=== PATIENT | male | born 1960 | race Caucasian/White ===

== ENCOUNTER 2017-02-23 23:37 | Inpatient (IN) ==
[2017-02-23] MEDS ORDERED: Aspirin 81 MG TAB.CHEW PO ONE (23:43)
--- NOTE | 2017-02-23 23:57 | Emergency Department Note ---
Disposition Clinical Impression: Non-STEMI (non-ST elevated myocardial infarction) Disposition: Admitted As Inpatient Condition: Fair Time of Disposition: 01:57 Chest Pain HPI - General Chief Complaint: ED Chest Pain Stated Complaint: chest pain Time Seen by Provider: 02/23/17 23:43 Source: patient, EMS Limitations: no limitations Vital Signs Reviewed: Yes Nursing Notes Reviewed: Yes - History of Present Illness HPI Narrative: 57-year-old nontoxic-appearing male presents to the emergency department for evaluation of intermittent chest pain that has occurred for the past 3 days. The patient states that when symptoms arise, his pain is located to the substernal area. He states that originally, the pain was only present with exertion. He became concerned tonight, when the pain began during rest. He states the only alleviating factor is prolonged durations of rest. He denies any associated signs or symptoms such as shortness of breath, diaphoresis, nausea, or vomiting. He denies any sputum production, although states that he "always has a little bit of a cough because I smoke". He denies any previous cardiac history. He denies any known medical history. He denies taking any regular prescribed medications at home. Pt complaint: chest pain Onset (ago): day(s) (2 days ago) Duration: intermittent Onset: during rest, during exertion Pain Location: substernal Severity scale (1-10): 0 Quality: sharp Pain Radiation: none Treatments prior to arrival chest pain: none - Related Data Allergies Allergy/AdvReac Type Severity Reaction Status Date / Time No Known Allergies Allergy Verified 02/23/17 23:51 All systems ED: reviewed and negative except as stated. Constitutional: Denies: fever, chills, weakness, weight change Eyes: Denies: eye pain, eye discharge, vision change ENT ED: Denies: ear pain, throat pain, dental pain, hearing loss, epistaxis, congestion, dysphagia Cardiovascular: Reports: as per HPI, chest pain. Denies: palpitations, dyspnea on exertion, edema, syncope Respiratory: Denies: cough, dyspnea, wheezes, hemoptysis, stridor Gastrointestinal: Denies: abdominal pain, nausea, vomiting, diarrhea, constipation, hematemesis, melena, hematochezia Genitourinary: Denies: urgency, dysuria, frequency, hematuria Musculoskeletal: Denies: back pain, neck pain, arthralgia, myalgia Integumentary: Denies: rash, abrasion, lesions Neurological: Denies: headache, weakness, numbness, paresthesias, confusion, abnormal gait, vertigo Psychiatric: Denies: anxiety, depression, suicidal thoughts, homicidal thoughts , auditory hallucinations, visual hallucinations Endocrine: Denies: fatigue Hematological/Lymphatic: Denies: easy bleeding, easy bruising Allergic/Immunologic: Denies: facial swelling, urticaria Chest Pain PMH - Past Medical History Medical history: Reports: no medical history Psychiatric history: Reports: no psych history - Social History Smoking Status: Current every day smoker Alcohol use: Reports: none Drug use: Reports: none Physical Exam - General Limitations: no limitations General appearance: alert, in no apparent distress - Head Head exam: atraumatic, normocephalic, normal inspection - Eye Eye exam: Present: normal appearance, PERRL, EOMI. Absent: nystagmus - ENT ENT exam: mucous membranes moist - Neck Neck exam: Present: normal inspection, full ROM, trachea midline - Chest Chest inspection: Present: normal inspection, symmetric chest wall rise - Respiratory Respiratory exam: Present: normal lung sounds bilaterally. Absent: respiratory distress, wheezes, stridor, accessory muscle use, prolonged expiratory phase - Cardiovascular Cardiovascular exam: Present: regular rate, normal rhythm, normal heart sounds - Abdominal Exam Abdominal exam: Present: soft, Non-Tender, normal bowel sounds. Absent: tenderness, distention, guarding, rebound, rigidity - Extremities Exam Extremities exam: Present: normal inspection, full ROM. Absent: tenderness, pedal edema - Neurological Exam Neurological exam: Present: alert, oriented X3 - Psychiatric Psychiatric exam: Present: normal affect, normal mood - Skin Skin exam: Present: warm, dry, intact, normal color Course Course Narrative: 0150: I have discussed this patient's case with Dr. Gamboa. Dr. Gamboa has had a [id number] evaluation with this patient and agrees with the plan. He recommends admission to the hospitalist service for further evaluation of a non- STEMI. At this time, I am awaiting a return call from the hospitalist. 0210: I spoke with Dr. Blackmon, who has accepted the patient for admission to the hospitalist service. Vital Signs Temperature 98.2 F 02/23/17 23:40 Pulse Rate 73 02/23/17 23:40 Respiratory Rate 23 02/23/17 23:40 Blood Pressure 157/88 02/23/17 23:40 O2 Sat by Pulse Oximetry 98 02/23/17 23:40 Temperature 97.6 F 02/24/17 03:31 Pulse Rate 73 02/24/17 03:31 Respiratory Rate 16 02/24/17 03:31 Blood Pressure 115/74 02/24/17 03:31 O2 Sat by Pulse Oximetry 97 02/24/17 03:31 Oxygen Delivery Oxygen Delivery Room Air Chest Pain - Medical Records Medical records reviewed: Yes I reviewed the patient's medical records. - Lab Data Lab results reviewed: Yes I reviewed the patient's lab results. Lab results narrative: Laboratory Last Values WBC 8.4 K/mcL (4.3-11.1) 02/24/17 00:01 RBC 4.47 M/mcL (4.19-5.50) 02/24/17 00:01 Hgb 14.1 g/dL (12.9-16.9) 02/24/17 00:01 Hct 42.3 % (37.5-50.1) 02/24/17 00:01 MCV 94.6 fL (83.0-100.0) 02/24/17 00:01 MCH 31.5 pg (28.0-33.3) 02/24/17 00:01 MCHC 33.3 g/dL (31.6-35.5) 02/24/17 00:01 RDW 14.2 % (11.5-14.5) 02/24/17 00:01 Plt Count 180 K/mcL (140-400) 02/24/17 00:01 MPV 13.7 fL (9.4-12.4) H 02/24/17 00:01 Immature Gran % 0.4 % (0-4) 02/24/17 00:01 Seg Neutrophils % 62.5 % 02/24/17 00:01 Lymphocytes % 24.1 % 02/24/17 00:01 Monocytes % 8.1 % 02/24/17 00:01 Eosinophils % 4.1 % 02/24/17 00:01 Basophils % 0.8 % 02/24/17 00:01 Neutrophils # 5.3 K/mcL (1.6-8.9) 02/24/17 00:01 Lymphocytes # 2.0 K/mcL (0.6-4.6) 02/24/17 00:01 Monocytes # 0.7 K/mcL (0.0-1.3) 02/24/17 00:01 Eosinophils # 0.3 K/mcL (0.0-0.6) 02/24/17 00:01 Basophils # 0.1 K/mcL (0.0-0.2) 02/24/17 00:01 Nucleated RBCs/100 WBC 0.2 /100 WBC (0) H 02/24/17 00:01 Platelet Estimate Normal (Normal) 02/24/17 00: Large Platelets Present (Not Present) A 02/24/17 00: Immature Plt Fraction 24.3 % (1.1-6.1) H 02/24/17 00: PT 11.8 Seconds (9.4-12.1) 02/24/17 00: INR 1.1 02/24/17 00: APTT 30.1 Seconds (26.0-36.0) 02/24/17 00: Sodium 142 mEq/L (136-145) 02/24/17 00: Potassium 3.1 mEq/L (3.5-4.5) L 02/24/17 00: Chloride 107 mEq/L (98-109) 02/24/17 00: Carbon Dioxide 25 mEq/L (19-29) 02/24/17 00: BUN 20 mg/dL (8-26) 02/24/17 00:01 Creatinine 1.04 mg/dL (0.72-1.25) 02/24/17 00: Est GFR ( Amer) > 60 (> 60) 02/24/17 00: Est GFR (Non-Af Amer) > 60 (> 60) 02/24/17 00:01 BUN/Creatinine Ratio 19 (6-26) 02/24/17 00: Glucose 139 mg/dL (70-99) H 02/24/17 00: Calculated Osmolality 299 (280-300) 02/24/17 00: Calcium 8.5 mg/dL (8.6-10.8) L 02/24/17 00: Troponin I 0.23 ng/mL (0-0.03) H* 02/24/17 00:01 B-Natriuretic Peptide 43 pg/mL (0-100) 02/24/17 00:01 Result diagrams: 02/24/17 00:01 02/24/17 00:01 Lab Results 02/24/17 02/24/17 02/24/17 Range/Units 00:01 00:01 00:01 WBC 8.4 (4.3-11.1) K/mcL RBC 4.47 (4.19-5.50) M/mcL Hgb 14.1 (12.9-16.9) g/dL Hct 42.3 (37.5-50.1) % MCV 94.6 (83.0-100.0) fL MCH 31.5 (28.0-33.3) pg MCHC 33.3 (31.6-35.5) g/dL RDW 14.2 (11.5-14.5) % Plt Count 180 (140-400) K/mcL MPV 13.7 H (9.4-12.4) fL Immature Gran % 0.4 (0-4) % Seg Neutrophils % 62.5 % Lymphocytes % 24.1 % Monocytes % 8.1 % Eosinophils % 4.1 % Basophils % 0.8 % Neutrophils # 5.3 (1.6-8.9) K/mcL Lymphocytes # 2.0 (0.6-4.6) K/mcL Monocytes # 0.7 (0.0-1.3) K/mcL Eosinophils # 0.3 (0.0-0.6) K/mcL Basophils # 0.1 (0.0-0.2) K/mcL Nucleated RBCs/100 WBC 0.2 H (0) /100 WBC Platelet Estimate Normal (Normal) Large Platelets Present A (Not Present) Immature Plt Fraction 24.3 H (1.1-6.1) % PT 11.8 (9.4-12.1) Seconds INR 1.1 APTT 30.1 (26.0-36.0) Seconds Sodium (136-145) mEq/L Potassium (3.5-4.5) mEq/L Chloride (98-109) mEq/L Carbon Dioxide (19-29) mEq/L BUN (8-26) mg/dL Creatinine (0.72-1.25) mg/dL Est GFR ( Amer) (> 60) Est GFR (Non-Af Amer) (> 60) BUN/Creatinine Ratio (6-26) Glucose (70-99) mg/dL Calculated Osmolality (280-300) Calcium (8.6-10.8) mg/dL Troponin I (0-0.03) ng/mL B-Natriuretic Peptide 43 (0-100) pg/mL 02/24/17 02/24/17 Range/Units 00:01 00:01 WBC (4.3-11.1) K/mcL RBC (4.19-5.50) M/mcL Hgb (12.9-16.9) g/dL Hct (37.5-50.1) % MCV (83.0-100.0) fL MCH (28.0-33.3) pg MCHC (31.6-35.5) g/dL RDW (11.5-14.5) % Plt Count (140-400) K/mcL MPV (9.4-12.4) fL Immature Gran % (0-4) % Seg Neutrophils % % Lymphocytes % % Monocytes % % Eosinophils % % Basophils % % Neutrophils # (1.6-8.9) K/mcL Lymphocytes # (0.6-4.6) K/mcL Monocytes # (0.0-1.3) K/mcL Eosinophils # (0.0-0.6) K/mcL Basophils # (0.0-0.2) K/mcL Nucleated RBCs/100 WBC (0) /100 WBC Platelet Estimate (Normal) Large Platelets (Not Present) Immature Plt Fraction (1.1-6.1) % PT (9.4-12.1) Seconds INR APTT (26.0-36.0) Seconds Sodium 142 (136-145) mEq/L Potassium 3.1 L (3.5-4.5) mEq/L Chloride 107 (98-109) mEq/L Carbon Dioxide 25 (19-29) mEq/L BUN 20 (8-26) mg/dL Creatinine 1.04 (0.72-1.25) mg/dL Est GFR ( Amer) > 60 (> 60) Est GFR (Non-Af Amer) > 60 (> 60) BUN/Creatinine Ratio 19 (6-26) Glucose 139 H (70-99) mg/dL Calculated Osmolality 299 (280-300) Calcium 8.5 L (8.6-10.8) mg/dL Troponin I 0.23 H* (0-0.03) ng/mL B-Natriuretic Peptide (0-100) pg/mL - Radiology Data Radiology results reviewed: Yes I reviewed the patient's radiology results. Chest X-Ray 02/24/17 23:43 IMPRESSION: No acute cardiopulmonary process. D/ / Brenna Strong MD / Brenna Strong MD Interpreting Provider: Brenna Strong MD - EKG Data EKG attestation: Yes I reviewed and interpreted this EKG. EKG results narrative: EKG reviewed by Dr. Gamboa as well. EKG shows sinus rhythm with moderate ST depression in leads V4, V5, and V6. No ectopy noted. No STEMI. Attestation Statement - Attestation Attestation: I, Charli Gamboa, examined this patient and my medical decision-making was reviewed with the [employer]/PA/Advanced Practice Nurse/Resident Physician. I agree with the documented findings, disposition and treatment plan as described except to the extent set forth below. 57-year-old male presents with concerns of weakness, fatigue, chest pain intermittent over the past 3 days. Patient denies history of cardiac disease. He denies taking any daily medications. Patient has an elevated troponin with an EKG that shows lateral ST depressions. He should not was started on heparin in the emergency department for concerns of an STEMI. He no longer has pain in the emergency department. He will be admitted to the hospital for further care and evaluation.
[2017-02-24 00:11] LABS: Basophils % 0.8 %; Immature Granulocytes % 0.4 % (0-4); Mean Platelet Volume 13.7 fL (9.4-12.4)
[2017-02-24 00:12] LABS: Basophils # 0.1 K/mcL (0.0-0.2); Eosinophils # 0.3 K/mcL (0.0-0.6); Eosinophils % 4.1 %; Hematocrit 42.3 % (37.5-50.1); Hemoglobin 14.1 g/dL (12.9-16.9); Immature Platelets 24.3 % (1.1-6.1); Lymphocytes % 24.1 %; Mean Corpuscular HGB Conc 33.3 g/dL (31.6-35.5); Mean Corpuscular Hemoglobin 31.5 pg (28.0-33.3); Mean Corpuscular Volume 94.6 fL (83.0-100.0); Monocytes # 0.7 K/mcL (0.0-1.3); Monocytes % 8.1 %; Neutrophils # 5.3 K/mcL (1.6-8.9); Nucleated Red Blood Cells 0.2 /100 WBC (0); Platelet Count 180 K/mcL (140-400); Red Blood Count 4.47 M/mcL (4.19-5.50); Red Cell Distribution Width 14.2 % (11.5-14.5); Segmented Neutrophils % 62.5 %
[2017-02-24 00:19] LABS: BUN/Creatinine Ratio 19 (6-26); Blood Urea Nitrogen 20 mg/dL (8-26); Calcium 8.5 mg/dL (8.6-10.8); Carbon Dioxide 25 mEq/L (19-29); Chloride 107 mEq/L (98-109); Glucose 139 mg/dL (70-99); INR 1.1; Osmolality,Calculated 299 (280-300); Potassium 3.1 mEq/L (3.5-4.5); Prothrombin Time 11.8 Seconds (9.4-12.1); Sodium 142 mEq/L (136-145); eGFR For African Americans > 60 (> 60); eGFR For Non-African Americans > 60 (> 60)
[2017-02-24 00:22] LABS: Activated Partial Thrombo Time 30.1 Seconds (26.0-36.0)
[2017-02-24 00:30] LABS: Large Platelets Present (Not Present); Platelet Estimate Normal (Normal)
[2017-02-24] MEDS ORDERED: *HR* Heparin 5,000 UNIT/ML VIAL IVP PRN ×2 (02:08)
[2017-02-24] MEDS ORDERED: *HR* Heparin 5,000 UNIT/ML VIAL IVP ONE (02:08)
[2017-02-24] MEDS: Heparin 25,000 UNIT/500 ML D5W 25,000 UNIT/500 ML MLS IVC SCH ×2 (02:26→22:00)
[2017-02-24] MEDS ORDERED: Naloxone 0.4 MG/ML INJ IVP PRN (04:03)
[2017-02-24] MEDS ORDERED: *HR* Morphine 2 MG/ML SYRINGE IVP PRN (04:03)
--- NOTE | 2017-02-24 04:03 | Internal Med History&Physical ---
Date of Encounter: 02/24/17 Time of Encounter: 04:03 Assessment and Plan (1) Non-STEMI (non-ST elevated myocardial infarction) Current visit: Yes Status: Acute Risk factor: smoking - counseled for smoking cessation. Check lipid panel Treat with aspirin, intravenous heparin infusion. Cardiology consultation for possible cardiac catheterization. NPO for possible procedure. (2) Nicotine dependence Current visit: Yes Status: Acute Counseled for smoking cessation - pt is willing to stop smoking. Patient does not want nicotine patches at this time. Qualifiers: Nicotine product type: cigarettes Substance use status: other nicotine- induced disorder Qualified Code(s): F17.218 - Nicotine dependence, cigarettes , with other nicotine-induced disorders (3) Hyperglycemia Current visit: Yes Status: Acute No personal h/o DM. Will check HbA1C (4) Sleep apnea Current visit: Yes Status: Suspected Recommend sleep study as an outpatient - need to be organized by PCP Qualifiers: Sleep apnea type: unspecified type Qualified Code(s): G47.30 - Sleep apnea , unspecified (5) DVT prophylaxis Current visit: Yes Status: Acute patient is on heparin infusion Internal Medicine - H&P: HPI Chief complaint: Chest pain Admitted From: Emergency Dept Plans for Post Hospital Care: Home History of present illness: Mr. Oneil is a 57 year old male with no significant past medical history, every day smoker ( > 40 pack years history) presents with intermittent chest pain for 3 days. On 02/21/17, he noticed severe non-radiation midsternal chest pain (felt like someone was hitting with all they have), while he was walking. He rested and the pain went away in about 30 minutes. He denies palpitations, sweating, nausea, vomiting, shortness of breath at that time. The same night, he had chest pain after waking up from sleep. Tonight he had similar chest pain , after he had a nap. He was concerned and presented to the emergency department. He denies shortness of breath, cough, nausea, vomiting, abdominal pain, dysuria, hematuria or bowel problems. He was evaluated in the emergency department and his troponin was elevated at 0.23. He was given aspirin 325 mg and started on heparin infusion. He is admitted to the hospitalist service for further management. Past Med Surg Social Fam HX - Past Medical History Medical history: no medical history Psychiatric history: no psych history - Social History Smoking Status: Current every day smoker Smokeless Tobacco Status: No Alcohol use: none Drug use: none - Additional Family History Additional family history: His father had stomach cancer; Mother had COPD and dementia Internal Medicine - H&P: Meds Allergies No Known Allergies Allergy (Verified 02/23/17 23:51) All Systems PM: A 10-system review of systems was performed and is negative for pertinent findings except as documented above in the HPI. Pt reports snoring; sometimes feel tired after waking up in the morning and has h/o daytime sleepiness while sitting idle. - Constitutional Vitals: Temp Pulse Resp BP Pulse Ox 97.6 F 73 16 115/74 97 02/24/17 03:31 02/24/17 03:31 02/24/17 03:31 02/24/17 03:31 02/24/17 03:31 Exam: General: Not in acute distress at the time of my evaluation HEENT: Oral mucosa is moist. No conjunctival palor or scleral icterus Neck: No obvious neck swellings Lungs: Clear to auscultation Cardiac: Regular rate and rhythm. No significant murmurs Abdomen: Soft, non tender. Bowel sounds present Genitourinary: No dos snatos catheter Neurological: Alert and oriented. No gross localizing deficits Psych: Not aggressive or agitated Extremities: no significant leg edema Skin: scratch villarreal on the legs present Internal Med - H&P Results - Labs CBC & Chem 7: 02/24/17 00:01 02/24/17 00:01 - EKG Data -: EKG Interpreted by Myself EKG shows normal: sinus rhythm - EKG Data EKG comments: [address] depression in leads V3-V6: partial RBBB 02/24/17 04:27 - Impressions ITS Impressions Chest X-Ray 02/24/17 23:43 IMPRESSION: No acute cardiopulmonary process. D/ / Brenna Strong MD / Brenna Strong MD Interpreting Provider: Brenna Strong MD
[2017-02-24] MEDS ORDERED: Nitroglycerin 0.4 MG TAB.SUBL SL PRN (04:07)
[2017-02-24 06:06] LABS: Chol/HDL Ratio 5.6 (0-4.9)
[2017-02-24 06:14] LABS: Hemoglobin A1C 5.3 %
--- NOTE | 2017-02-24 07:05 | Cardiology Consult Note ---
Date of Encounter: 02/24/17 Time of Encounter: 07:02 Assessment and Plan (1) Non-STEMI (non-ST elevated myocardial infarction) Current Visit: Yes Status: Acute Patient presents with typical chest pain symptoms. No known history. Presents with elevated blood pressure 158/66. Cholesterol panel shows LDL elevated at 143. He is a current smoker. Left heart catheterization is recommended for further evaluation. Indications, benefits, risks, and alternatives discussed with patient and he agrees to proceed. Nothing by mouth after midnight for LHC and a.m. Check TTE. Continue to trend troponin. Cardiac rehab referral. Continue heparin drip. Continue aspirin. Add statin and beta susan. (2) Nicotine dependence Current Visit: Yes Status: Acute Counseled for smoking cessation. Declines need for NRT. Qualifiers: Nicotine product type: cigarettes Substance use status: other nicotine- induced disorder Qualified Code(s): F17.218 - Nicotine dependence, cigarettes , with other nicotine-induced disorders (3) Hyperlipidemia Current Visit: Yes Status: Acute Start statin. Qualifiers: Hyperlipidemia type: pure hypercholesterolemia Qualified Code(s): E78.00 - Pure hypercholesterolemia, unspecified; E78.0 - Pure hypercholesterolemia Discussion w patient/family: The assessment and plan as outlined above was discussed with the patient and/or family members who expressed understanding and agreement. All questions were answered. Thank you for involving us in the care of your patient. Please call with any questions. History of Present Illness Consult date: 02/24/17 Requesting physician: Carolyn Blackmon Consult reason: NSTEMI Chief complaint: Chest pain History of present illness: Mr. Oneil is a 57 year old male with no previous medical history who presents with intermittent chest pain over the last 3 days. His chest pain is midsternal that occurs mostly with activity. His symptoms are relieved with rest. He became concerned when he developed chest pain at rest yesterday. He denies shortness of breath. He has no previous history of CAD or cardiac workup. In the emergency department was found to have elevated troponin 0.23. EKG shows sinus rhythm with borderline ST depression in leads V4 through V6, I, II, and aVF.He is admitted for non-STEMI. Past Med Surg Social Fam HX - Past Medical History Medical history: no medical history Psychiatric history: no psych history - Social History Smoking Status: Current every day smoker Packs per day: 1 Smokeless Tobacco Status: No Alcohol use: none Drug use: none - Family History Mother Living Status: Hx Family Cardiac Disorders: No Hx Family Respiratory Disorders: Yes (copd) Hx Family Cancer: No Hx Family GI Disorders: No Hx Family Genitourinary Disorders: No Hx Family Endocrine Disorder: No Hx Family Musculoskeletal Disorders: No Hx Family Neuromuscular Disorders: No Hx Family Neurologic Disorders: Yes (dementia) Hx Family HEENT Disorders: No Hx Family Autoimmune Disorders: No Hx Family Reproductive Disorders: No Hx Family Psychosocial Disorders: No Hx Family Medical Disorders: No Father Living Status: Hx Family Cardiac Disorders: No Hx Family Respiratory Disorders: No Hx Family Cancer: Yes (stomach cancer) Hx Family GI Disorders: No Hx Family Genitourinary Disorders: No Hx Family Endocrine Disorder: No Hx Family Musculoskeletal Disorders: No Hx Family Neuromuscular Disorders: No Hx Family Neurologic Disorders: No Hx Family HEENT Disorders: No Hx Family Autoimmune Disorders: No Hx Family Reproductive Disorders: No Hx Family Psychosocial Disorders: No Hx Family Medical Disorders: No Medications and Allergies Allergies No Known Allergies Allergy (Verified 02/23/17 23:51) All Systems Review: A 10-system review of systems was performed and is negative for pertinent findings except as documented above in the HPI. Physical Examination Vital Signs Temp Pulse Resp BP Pulse Ox 02/24/17 03:31 97.6 F 73 16 115/74 97 02/24/17 03:04 98.3 F 18 134/76 02/24/17 01:45 64 16 137/77 97 02/24/17 01:11 61 18 160/88 98 02/23/17 23:40 98.2 F 73 23 157/88 98 Intake and Output 02/23/17 02/23/17 02/24/17 15:59 23:59 07:59 Intake Total 25 / 25 Balance 25 / 25 Intake: IV Fluids 25 / 25 Heparin 25,000 UNIT/500 25 / 25 ML D5W 25,000 unit In 500 ml @ 12 UNIT/KG/HR 26. 088 mls/hr IVC .[id number] Rx#:[id number] Other: Weight 113.398 kg 108.6 kg Patient Weight 02/24/17 23:59 Weight 108.6 kg General: Conversant, No Apparent Distress HEENT: Atraumatic, Normocephaly, Mucus Membranes Moist Neck: No JVD, Normal carotid pulses Cardiac: Reg Rate and Rhythm, Normal S1 and S2, No Murmur Lungs: Normal Breath Sounds, No Wheeze, Rales, Rhonchi Neuro: Alert and responsive, No focal deficits noted Abdomen: Soft, Non-Tender Skin: No rashes noted on visualized skin Musculoskeletal: No Chest Wall Tenderness Extremities: No Clubbing, No Cyanosis, No Edema, Normal Pulses Results 02/24/17 00:01 02/24/17 00:01 Lab Results 02/24/17 04:40 Magnesium 1.8 - Imaging and Cardiology Chest Xray: report reviewed (No acute findings.) - EKG Interpretation EKG results cardiology: personally reviewed Consult Discharge Plan - Plan Referrals: NO,PCP [Primary Care Provider] -
[2017-02-24] MEDS ORDERED: Aspirin 325 MG TABLET PO SCH (09:00)
--- NOTE | 2017-02-24 12:03 | Internal Med Progress Note ---
<Mo Carrion - Last Filed: 02/24/17 12:06> Date of Encounter: 02/24/17 Time of Encounter: 11:57 - Assessment and plan (1) Non-STEMI (non-ST elevated myocardial infarction) Current Visit: Yes Status: Acute Assessment and plan: 57-year-old male with history of tobacco abuse 40 pack year history presented with chief complaint of intermittent chest pain described as a punch, heaviness substernally not associated with nausea, vomiting, diaphoresis, shortness of breath. Patient had first episode while walking and the pain went away and 30 minutes after resting. Patient had similar pain occurred 2 more times. In the ER his troponin was elevated at 2.23. EKG showed a rate of 67, normal sinus rhythm with ST depressions in the lateral leads. risk factors include smoking, hyperlipidemia, obesity. Denies family history of cardiac disease however he states he is not very close with his family. Troponin 0.23, 0.22, 0.46. On an upward trend. Currently patient denies chest pain, shortness of breath. Cardiology consult of the hand he will undergo left heart catheterization tomorrow Echocardiogram pending. Continue aspirin and heparin, statin, metoprolol. (2) Nicotine dependence Current Visit: Yes Status: Acute Assessment and plan: Patient has a 21-jovl-xyxd history. Currently he understands the benefits of smoking cessation. And patient is willing to stop. He does not want nicotine patches at this time. Qualifiers: Nicotine product type: cigarettes Substance use status: other nicotine- induced disorder Qualified Code(s): F17.218 - Nicotine dependence, cigarettes , with other nicotine-induced disorders (3) Hyperglycemia Current Visit: Yes Status: Acute Assessment and plan: Patient's glucose is 139. He does not have any history of diabetes. His HgA1c is 5.3. (4) DVT prophylaxis Current Visit: Yes Status: Acute Assessment and plan: Heparin drip. (5) Sleep apnea Current Visit: Yes Status: Suspected Assessment and plan: Risk factors for sleep apnea include sex, obesity, smoking. We will set up outpatient sleep study. Qualifiers: Sleep apnea type: unspecified type Qualified Code(s): G47.30 - Sleep apnea , unspecified (6) Hyperlipidemia Current Visit: Yes Status: Acute Assessment and plan: Patient's LDL cholesterol is 143 and HDL is 34. Continue statin. Qualifiers: Hyperlipidemia type: pure hypercholesterolemia Qualified Code(s): E78.00 - Pure hypercholesterolemia, unspecified; E78.0 - Pure hypercholesterolemia - Subjective Interval history: Patient currently denies chest pain, shortness of breath, nausea, sweating, vomiting. - Constitutional Vitals: Temp Pulse Resp BP Pulse Ox 97.8 F 61 18 105/75 96 02/24/17 11:00 02/24/17 11:00 02/24/17 11:00 02/24/17 11:00 02/24/17 11:00 - Head Head exam: Present: atraumatic, normocephalic - Eye Eye exam: Present: PERRL, conjuntiva pink, sclera anicteric Pupils: Present: PERRL - Neck Neck exam general surgery: Present: supple, trachea midline. Absent: lymphadenopathy - Respiratory Respiratory exam: Present: CTAB. Absent: accessory muscle use, rales, rhonchi, wheezes - Cardiovascular Cardiovascular exam: Present: RRR, +S1, +S2. Absent: diastolic murmur, gallop, rubs, systolic murmur - GI/Abdominal GI/Abdominal exam: Present: normal bowel sounds, soft, no peritoneal signs. Absent: distended, tenderness - Extremities Exam Extremities exam: Present: warm, radial pulses palpable and symetrical. Absent : calf tenderness, cyanotic, pedal edema - Neurological Exam Neurological exam: Present: CN II-XII intact, oriented X3, no focal deficits. Absent: pronater drift, facial droop, speech deficit - Skin Skin exam: Present: dry, intact Internal Medicine: Result - Labs CBC & Chem 7: 02/24/17 00:01 02/24/17 00:01 Labs: Cardiac Enzymes 02/24/17 02/24/17 Range/Units 04:40 10:18 Troponin I 0.22 H* 0.46 H* (0-0.03) ng/mL - ABG Interpretation ABG results: PT/INR, D-dimer PT 11.8 Seconds (9.4-12.1) 02/24/17 00:01 - Impressions Impressions Chest X-Ray 02/24/17 23:43 IMPRESSION: No acute cardiopulmonary process. D/ / Brenna Strong MD / Brenna Strong MD Interpreting Provider: Brenna Strong MD Consult Discharge Plan - Plan Referrals: NO,PCP [Primary Care Provider] - <Rene Jacome - Last Filed: 02/24/17 13:29> Date of Encounter: 02/24/17 - Assessment and plan (1) Non-STEMI (non-ST elevated myocardial infarction) Current Visit: Yes Status: Acute (2) Hyperglycemia Current Visit: Yes Status: Acute (3) Hyperlipidemia Current Visit: Yes Status: Acute Qualifiers: Hyperlipidemia type: pure hypercholesterolemia Qualified Code(s): E78.00 - Pure hypercholesterolemia, unspecified; E78.0 - Pure hypercholesterolemia (4) Sleep apnea Current Visit: Yes Status: Suspected Qualifiers: Sleep apnea type: unspecified type Qualified Code(s): G47.30 - Sleep apnea , unspecified (5) Nicotine dependence Current Visit: Yes Status: Acute Qualifiers: Nicotine product type: cigarettes Substance use status: other nicotine- induced disorder Qualified Code(s): F17.218 - Nicotine dependence, cigarettes , with other nicotine-induced disorders - Constitutional Vitals: Temp Pulse Resp BP Pulse Ox 97.8 F 61 18 105/75 96 02/24/17 11:00 02/24/17 11:00 02/24/17 11:00 02/24/17 11:00 02/24/17 11:00 Internal Medicine: Result - Labs CBC & Chem 7: 02/24/17 00:01 02/24/17 00:01 Labs: Cardiac Enzymes 02/24/17 02/24/17 Range/Units 04:40 10:18 Troponin I 0.22 H* 0.46 H* (0-0.03) ng/mL - ABG Interpretation ABG results: PT/INR, D-dimer PT 11.8 Seconds (9.4-12.1) 02/24/17 00:01 - Impressions Impressions Chest X-Ray 02/24/17 23:43 IMPRESSION: No acute cardiopulmonary process. D/ / Brenna Strong MD / Brenna Strong MD Interpreting Provider: Brenna Strong MD - Attending Attestation I examined this patient and my medical decision-making was reviewed with the Resident Physician on 02/24/17. I agree with the documented findings, disposition and treatment plan as described except to the extent set forth below. Mr. Oneil is currently admitted with acute NSTEMI. He is high risk due to potential for worsening cardiac status. He remains on IV heparin and troponin is high. Mr. Oneil feels hungry right now. No further chest pain since down in ED. No dyspnea. No fever or chills. Remains on heparin with no issue. To have LHC tomorrow. No questions at this time. Exam Alert. Comfortable Heart reg Lungs clear No wheeze No edema Abd soft I/P 1. Acute NSTEMI - LHC tomorrow. On heparin drip, ASA, statin 2. Hyperglycemia 3. Probable PONCHO 4. Tobacco abuse Further diagnoses and plan as above.
--- NOTE | 2017-02-24 20:48 | Electrocardiograph Report ---
[place] [id number] Test Date: 2017-02-23 Pat Name: Jose Oneil Department: 104 Room: 2NE23 Gender: M Window Trimmer: JONY : 1960 Requested By: Silvino Perales Order Number: [id number] Reading MD: Huy Hernandez MD Measurements Intervals Connelly Rate: 67 P: 66 MD: 168 QRS: 20 QRSD: 81 T: 49 QT: 399 QTc: 415 Interpretive Statements SINUS RHYTHM Electronically Signed On 02-24-2017 20:46:45 EDT by Huy Hernandez MD
[2017-02-25] MEDS ORDERED: Heparin 1,000 UNITS/500 mL NS 500 ML ONE (06:12)
[2017-02-25] MEDS ORDERED: Verapamil 5 MG/2 ML VIAL ONE (06:12)
[2017-02-25] MEDS ORDERED: 0.9 % Sodium Chloride 1,000 ML ONE (06:12)
[2017-02-25] MEDS ORDERED: *HR* Heparin 10,000 UNIT/10 ML VIAL ONE (06:13)
[2017-02-25] MEDS ORDERED: Nitroglycerin 1,000 MCG/10 ML VIAL IV ONE (06:13)
--- NOTE | 2017-02-25 06:45 | Pre-Sedation Evaluation ---
Pre-sedation evaluation - Pre-sedation checklist Date of procedure: 02/25/17 Procedure: Heart Cath Recent Vitals: Last Vital Signs Temp 97.6 F 02/25/17 04:00 Pulse 59 02/25/17 04:00 Resp 16 02/25/17 04:00 BP 110/75 02/25/17 04:00 Pulse Ox 94 02/25/17 04:00 H&P (including ROS) documented in medical record: Yes Previous reaction to sedatives/anesthetics: No Dietary Status: NPO after Midnight Dentition: No loose teeth or bridges, dentures removed ASA Classification *see protocol: CLASS II-Mild systemic disease Plan of Care: Pt appropriate candidate for procedure/moderate/conscious sedation , Risks/benefits of procedure/sedation discussed w/ patient/family
[2017-02-25] MEDS ORDERED: *HR* FentaNYL (PF) 250 MCG/5 ML VIAL ONE (06:46)
[2017-02-25] MEDS ORDERED: *HR* Midazolam HCl 5 MG/5 ML VIAL IVP ONE (06:46)
[2017-02-25] MEDS ORDERED: Tirofiban 12.5 MG/250ML 12.5 MG/250 ML BAG ONE (07:06)
[2017-02-25] MEDS ORDERED: *HR* Ticagrelor 90 MG TABLET ONE (07:18)
[2017-02-25] MEDS ORDERED: Tirofiban 12.5 MG/250ML 12.5 MG/250 ML BAG IVC SCH (07:30)
--- NOTE | 2017-02-25 07:35 | Invasive Diagnostic Lab Proc ---
Name: Jose Oneil Date of Study: 02/25/2017 Date: 1960 Ht: 68.1in Medical Record#: [id number] Age: 57 Wt: 242.51lb Gender: Male BSA: 2.22 Order #: [id number] BMI: 36.75 Physicians Procedure Physician: Huy Hernandez MD, FACC Referring MD: None Referring MD: Staff Name Position Time In Jose Perez RN Equipment Man 06:48 AM Rowena Patiño RT (R) Monitor 06:48 AM Diann Swain RT (R) Scrub 06:48 AM Indications Indication Non-Stemi Procedures Performed Procedure L HRT ARTERY/VENTRICLE ANGIO PRQ CARD LAVELL STENT W/ANGIO 1 VSL Pre-Procedure Checklist Informed consent is complete signed and on chart. H\\T\\P is on chart. ID band is on and ID verified with patient. Patient NPO for procedure The procedure was described for the patient and questions were answered. Blood Pressure: 110/75 ECG is on chart. Rhythm: Sinus Bradycardia Plan of Care Patient will tolerate the procedure without complications. Adequate level of comfort will be maintained. Hemodynamics will remain stable Patient will recover from procedure without complications. Respiratory function will be maintained. Cardiac rhythm will remain stable. Patient temperature will be maintained. Patient and/or family have verbalized understanding of the procedure. Patient Education Chief Complaint/Reason for Test: Cardiac Cath Developmental Category: Adult (18-64 years) Developmentally Appropriate for Age: Yes Learning Barriers: None Education Needs: Procedure Education Method: Verbal Information Taught: Cardiac Cath Educational Evaluation: Able to repeat information Intravenous Access Time IV Size Location DC'd Fluid/Drip Rate Units RN 20g 1 10/10" Patent On Arrival Rt Antecubital 0.9NaCl 25 ml/hr Jose Perez RN Allergies No Known Allergies Vital Signs Time BP (mmHg) HR (bpm) O2 Sat. RR (bpm) LOC 06:12 AM 110 / 75 59 94 % 16 5 = Fully awake and oriented or at pre-proc level 06:51 AM / % 4 = Oriented but drowsy 06:51 AM / % 4 = Oriented but drowsy 07:06 AM / % 4 = Oriented but drowsy 06:46 AM 148 / 82 68 98 % 25 06:51 AM 131 / 72 79 97 % 20 06:56 AM 121 / 67 62 95 % 12 07:01 AM 118 / 58 59 93 % 18 07:06 AM 118 / 63 76 94 % 15 07:11 AM 131 / 69 61 91 % 07:16 AM 144 / 76 64 95 % 17 07:21 AM 154 / 81 66 % 12 Procedural Medications Time Medication Dose Units Method Given By 06:50 AM Versed 2 mg Intravenous Jose Perez RN 06:50 AM Fentanyl 50 mcg Intravenous Jose Perez RN 06:56 AM Lidocaine 2% 0.5 ml Subcutaneous Huy Hernandez MD, FAC 06:58 AM Heparin 2000 units Nitroglycerin 200 mcg Verapamil 2.5 mg Intraarterial Huy Hernandez MD, FACC 07:10 AM Aggrastat Bolus: 54 ml Intravenous Jose Perez RN 07:10 AM Aggrastat 12.5mg/250ml 19.5 ml Intravenous Jose Perez RN 07:11 AM Heparin 2000 units Intravenous Jose Perez RN 07:18 AM Brilinta 180 mg Orally Jose Perez RN ASA Classification: CLASS II- Mild systemic disease (i.e. well-controlled diabetes, hypertension, asthma, cigarette smoking) Wild Score Preprocedure Postprocedure Activity 2- Moves 4 extremities sustained head lift Activity 2- Moves 4 extremities sustained head lift Circulation 2- SBP +/= 20 points of pre-anesthetic level Circulation 2- SBP +/= 20 points of pre-anesthetic level Consciousness 2- Awake and alert oriented x 3 Consciousness 2- Awake and alert oriented x 3 O2 Saturation 2- Able to maintain O2 satruation of 92% on room air O2 Saturation 2- Able to maintain O2 satruation of 92% on room air Respiratory 2- Able to deep breathe and cough well Respiratory 2- Able to deep breathe and cough well Total Score 10 Total Score 10 Contrast Agent: Isovue Diagnostic Contrast: 121 ml Total Contrast: 121 ml Fluoro Dose: 428 mGy Activated Clotting Time Time Seconds to Clot 07:12 AM 212 Procedure Log Time Note Enter By 06:11 AM CathStat 06:44 AM Recorded ECG: HR=60 Condition=Condition 1 06:45 AM Vitals capture started with the following parameters, Patient=Adult, Interval=5 min, Initial Snxbxaev=238 mmHg, Deflation Rate=5 mmHg, Cuff placed on Right Arm 06:46 AM HR=68 bpm, TEUR=228/82 mmhg, SpO2=98.0 %, Resp=25 B/min, Comment=NSR 06:48 AM Pt arrived to denture laboratory technician 2 at 06:48 [email or web address] 06:48 AM Jose Perez RN Position: Equipment Man Time in: 06:48 [email or web address] 06:48 AM Rowena Patiño RT (R) Position: Monitor Time in: 06:48 [email or web address] 06:49 AM Diann Swain RT (R) Position: Scrub Time in: 06:48 [email or web address] 06:49 AM Patient charges- Angio tray pack, Navilyst 3mm J, Pulse Oximetry and ACIST tubing and transducer [email or web address] 06:49 AM Case Delayed No [email or web address] 06:49 AM Hair removed from procedure site in holding area using clippers. Bilateral groin prepped with Chloraprep by Diann Swain RT (R), safety strap applied then patient was draped. Skin intact. [email or web address] 06:49 AM [facility]ician arrived 06:49 [email or web address] 06:49 AM ASA Class CLASS II- Mild systemic disease (i.e. well-controlled diabetes, hypertension, asthma, cigarette smoking) [email or web address] 06:49 AM Meet and paddy completed [email or web address] 06:49 AM Sign in performed according to hospital policy. [email or web address] 06:49 AM Procedure start 06:49 [email or web address] 06:50 AM Time: 06:50 Versed 2 mg Intravenous Given by Jose Perez RN [email or web address] 06:50 AM Time: 06:50 Fentanyl 50 mcg Intravenous Given by Jose Perez RN [email or web address] 06:50 AM Time: 06:50 Patient comfortable and pain free: Yes [email or web address] 06:51 AM Time: 06:51LOC: 4 = Oriented but drowsy [email or web address] 06:51 AM HR=79 bpm, AEUE=803/72 mmhg, SpO2=97.0 %, Resp=20 B/min, Comment=NSR 06:53 AM Pressure channel 1 zeroed. 06:56 AM HR=62 bpm, DDJS=692/67 mmhg, SpO2=95.0 %, Resp=12 B/min, Comment=NSR 06:56 AM Time out performed according to hospital policy [email or web address] 06:56 AM Time: 06:56 0.5 ml Lidocaine 2% to right radial Subcutaneous Given by Huy Hernandez MD, [email or web address] 06:57 AM Access obtained by percutaneous puncture. 6Fr 10cm Terumo Glidesheath sheath placed in right Radial artery. [id number] [email or web address] 06:58 AM Time: 06:58 Patient given 2000 units Heparin, 200 mcg Nitroglycerin, and 2.5 mg Verapamil Intraarterial by Huy Hernandez MD, [facility] [email or web address] 06:58 AM 0.035 260cm Navilyst 3mmJ wire [id number] [email or web address] 06:59 AM 5Fr FR 4 catheter inserted over the wire DN [email or web address] 07:00 AM RCA angiography performed in multiple views. [email or web address] 07:00 AM Recorded Pressure: Ao, HR=60, Condition=Condition 1 (Aorta) Ao 94/67/80 07:00 AM Coronary Dominance: right [email or web address] 07:00 AM Catheter removed [email or web address] 07:00 AM 5Fr FL 4 catheter inserted over the wire DN [email or web address] 07:01 AM HR=59 bpm, XKXK=137/58 mmhg, SpO2=93.0 %, Resp=18 B/min, Comment=NSR 07:01 AM LCA angiography performed in multiple views. [email or web address] 07:02 AM Recorded Pressure: Ao, HR=62, Condition=Condition 1 (Aorta) Ao 95/67/81 07:02 AM Recorded Pressure: Ao, HR=61, Condition=Condition 1 (Aorta) Ao 89/60/73 07:03 AM Lesion found in Mid Circumflex. Pre Stenosis: 90 Pre KAJAL Flow: 2: Partial Flow/Perfusion (> 1 but < 3) [email or web address] 07:03 AM Catheter removed [email or web address] 07:04 AM 5Fr Pigtail catheter inserted over the wire [facility] [email or web address] 07:04 AM Catheter selectively placed in left ventricle [email or web address] 07:04 AM Bolus angiogram of left Ventricle complete: 10 ml/sec for a total of 25 mls [email or web address] 07:05 AM Pressure channel 1 zero failed. 07:05 AM Pressure channel 1 zeroed. 07:06 AM Time: 06:50 Patient comfortable and pain free: Yes [email or web address] 07:06 AM Recorded Pressure: LV, HR=63, Condition=Condition 1 (Left Ventricle) LV 84/12/16 07:06 AM HR=76 bpm, IZEX=622/63 mmhg, SpO2=94.0 %, Resp=15 B/min, Comment=NSR 07:06 AM Time: 06:51LOC: 4 = Oriented but drowsy [email or web address] 07:06 AM Recorded Pressure: LV, Ao, HR=64, Condition=Condition 1 (Left Ventricle) LV 125/13/27, (Aorta) Ao 111/69/89 07:06 AM Catheter removed [email or web address] 07:07 AM PCI Indication: Immediate PCI for STEMI [email or web address] 07:07 AM 6Fr RBL 3.5 Convey guide catheter was used to cannulate the PCI vessel successfully. reused? No [email or web address] 07:07 AM .014 PT Graphix 182cm guide wire across target lesion- successful. reused? No [email or web address] 07:07 AM Inflation device was opened. [email or web address] 07:08 AM Recorded Pressure: Ao, HR=63, Condition=Condition 1 (Aorta) Ao 126/81/101 07:10 AM Time: 07:10 Aggrastat Bolus: 54 ml Intravenous Given by Jose Perez RN Mon pump [email or web address] 07:10 AM Time: 07:10 Aggrastat 12.5mg/250ml 19.5 ml Intravenous Given by Jose Perez RN Mon pump [email or web address] 07:11 AM HR=61 bpm, ASHP=355/69 mmhg, SpO2=91.0 %, Comment=NSR 07:11 AM Time: 07:11 Heparin 2000 units Intravenous Given by Jose Perez RN [email or web address] 07:12 AM At 07:12 the ACT was 212 seconds. [email or web address] 07:12 AM 2.5 mm x 8 mm Emerge Monorail balloon across target lesion- successful. reused? No [email or web address] 07:12 AM Balloon inflated @ 12 arnaldo for 19 seconds [email or web address] 07:13 AM Balloon catheter removed intact. [email or web address] 07:14 AM 3.5mm x 12mm Synergy drug-eluting stent across target lesion- successful Lot #[id number] [email or web address] 07:15 AM Stent deployed @ 14 arnaldo for 14 seconds [email or web address] 07:16 AM HR=64 bpm, DWPK=736/76 mmhg, SpO2=95.0 %, Resp=17 B/min, Comment=NSR 07:16 AM Stent delivery system removed intact. [email or web address] 07:16 AM Guide wire removed intact. [email or web address] 07:16 AM Guide catheter removed intact. [email or web address] 07:16 AM Procedure completed at 07:16 [email or web address] 07:18 AM Time: 07:18 Brilinta 180 mg Orally Given by Jose Perez RN [email or web address] 07:19 AM Sign out completed: Radiation Dose 428.39 mGy Fluoro Time: 4.9 Isovue 370 - 200ml contrast 121 ml given by Huy Hernandez MD, [facility]. Complications: NoneCardiac Rehab Consult needed: YesConfirmed administered medications: Yes [email or web address] 07:19 AM Isovue 370 - 200ml,1 Bottle(s) used. [email or web address] 07:19 AM Arterial sheath pulled, Vasc Band closure device used and was Successful S/N. [email or web address] 07:19 AM 10 ml air in Vasc Band. [email or web address] 07:19 AM Post ECG NSR [email or web address] 07:19 AM Post Blood Pressure 144/76 [email or web address] 07:19 AM 07:19 Post Pulses Bilateral DP \\T\\ PT 2+ [email or web address] 07:20 AM Information taught Cardiac Cath, PCI, and Vasc Band [email or web address] 07:20 AM Education needs Procedure, Plan of Care, and Disease Process [email or web address] 07:20 AM Learning barriers :None [email or web address] 07:20 AM Education Methods Verbal [email or web address] 07:20 AM Education evaluation Able to repeat information [email or web address] 07:20 AM Site status No bleeding/hematoma - Rt Wrist as reported by Diann Swain RT (R) at 07:20 [email or web address] 07:20 AM Delay to floor No [email or web address] 07:20 AM Family placed in not available. [email or web address] 07:21 AM Time: 07:06LOC: 4 = Oriented but drowsy [email or web address] 07:21 AM HR=66 bpm, ZVQL=353/81 mmhg, Resp=12 B/min, Comment=NSR 07:25 AM Report given to RN Pt taken to 2NE Room #23. 07:25 [email or web address] 07:25 AM Patient out of room: 07:25 [email or web address] Complications Complication None Hemodynamics Pressures Site Systolic/A Wave Diastolic/V Wave Mean AO 94 67 80 AO 95 67 81 AO 89 60 73 LV 84 12 16 LV 125 13 27 AO 111 69 89 AO 126 81 101 Post Procedure Information Blood Pressure: 144/76 mmHg Rhythm: NSR Post procedural instructions were given Closure Device Time Device Success/Fail 02/25/2017 7:17:00 AM Mechanical Compression Successful Site Checks Time Location Status Staff Sheath In? Note 07:20 AM Rt Wrist No bleeding/hematoma Diann Swain RT (R) Pulses Time Site Pre-Procedure Post-Procedure Note 02/25/2017 6:12:00 AM Bilateral DP \\T\\ PT 2+ 02/25/2017 6:12:00 AM Bilateral radial 2+ 7:19:00 AM Bilateral DP \\T\\ PT 2+ Updated by Rowena Patiño, RT(R) on 02/25/2017 7:28:20 AM electronically signed on 02/25/2017 7:28:50 AM with status of Final
--- NOTE | 2017-02-25 08:36 | Invasive Diagnostic Lab ---
Name: Jose Oneil Date of Study: 02/25/2017 Date: 1960 Ht: 173.0 cm /68.1 in Medical Record#: [id number] Age: 57 Wt: 110. kg / 242.51 lb Account/Order#: [id number] Gender: Male BSA: 2.22 Order #: [id number] Fluoro Dose: 428 mGy BMI: 36.75 Procedure Physician: Huy Hernandez MD, FACC Referring MD: None Referring MD: Procedures Performed: LEFT HEART CATH Stent w/ PTCA Single Major Vessel Indications: Non-Stemi Impressions: There is severe one vessel coronary artery disease. The left ventricle is normal and has normal contractility EF 60% Patient had successful PTCA/Drug-Eluting Stent placement in the mid Circ. Recommendations: Optimal medical therapy of patient's disease. Aggressive risk factor modification. History/Risk Factors: NSTEMI (this admission) PONCHO Smoker Hyperlipidemia Procedure Access obtained in the right Radial artery by percutaneous puncture Patient had successful PTCA/Drug-Eluting Stent placement in the mid Circ. Complications: None Contrast: Isovue 121ml Closure Device: Mechanical Compression Hemodynamics: Pressures Site Systolic/ A Wave Diastolic/ V Wave End Diastolic/ Mean HR AO 94 67 80 60 AO 95 67 81 62 AO 89 60 73 61 LV 84 12 16 63 LV 125 13 27 64 AO 111 69 89 65 AO 126 81 101 63 LV Ventriculography Ejection Method: LV Gram Ejection Fraction: 60% Wall Motion: MANJARREZ Anterobasal Normal Anterolateral Normal Apical: Normal Inferoapical Normal Inferobasal Normal Coronary Dominance: right Lesion Findings/Interventions * Left Main Coronary Artery The LMCA is angiographically free of disease. * Left Anterior Descending The proximal and mid LAD has luminal irregularities The 1st Diagonal has luminal irregularities * Circumflex There is a 90% stenosis in the Mid Circumflex. The lesion has a KAJAL flow of 2 and has no thrombus present. This lesion is further described as discrete. An intervention was performed on the Mid Circumflex with a final stenosis of 0%. There were no lesion complications. The final KAJAL flow was 3. * Right Coronary Artery The RCA has luminal irregularities The Right PDA is angiographically free of disease. Interventional Device(s) Vessel Segment Type Name Diameter (mm) Length (mm) Mid Circumflex Balloon Emerge Monorail 2.5 8 Mid Circumflex Drug Eluting Stent Synergy 3.5 12 Updated by Rowena Patiño RT(R) on 02/25/2017 7:23:27 AM Huy Hernandez MD, FACC electronically signed on 02/25/2017 8:32:11 AM with status of Final
[2017-02-25] MEDS: *HR* Ticagrelor 90 MG TABLET PO SCH ×2 (09:36→20:57)
[2017-02-25] MEDS: Aspirin 81 MG TAB.CHEW PO SCH (09:44)
--- NOTE | 2017-02-25 13:18 | Event Note ---
Date of Encounter: 02/25/17 Time of Encounter: 13:15 - Cardiology Event Note S/p PCI to his LCx artery this morning. Troponin as high as 0.46. He denies recurrent chest pain. Importance of DAPT with brilinta and asa reviewed and he voiced understanding. Continue statin and bb. I will send [facility] pharmacy to make sure it is affordable. Activity restrictions including no heavy lifting over 10 pounds for a week, no driving for one week, and no soaking left radial access site. Okay for discharge in a.m. if no complications overnight. We will make outpatient cardiology follow-up in one week with [place] [facility]. Cardiology will sign off. Please call with questions.
--- NOTE | 2017-02-25 15:38 | Internal Med Progress Note ---
Date of Encounter: 02/25/17 Time of Encounter: 15:36 - Assessment and plan (1) Non-STEMI (non-ST elevated myocardial infarction) Current Visit: Yes Status: Acute Assessment and plan: Acute NSTEMI. Had cardiac cath today and bare metal stent to circ. Doing better now. Anticipate d/c in AM if no issues overnight. (2) Hyperglycemia Current Visit: Yes Status: Acute Assessment and plan: A1C is 5.3%. Diet control (3) Hyperlipidemia Current Visit: Yes Status: Acute Assessment and plan: Patient's LDL cholesterol is 143 and HDL is 34. Continue statin. Qualifiers: Hyperlipidemia type: pure hypercholesterolemia Qualified Code(s): E78.00 - Pure hypercholesterolemia, unspecified; E78.0 - Pure hypercholesterolemia (4) Sleep apnea Current Visit: Yes Status: Suspected Assessment and plan: Risk factors for sleep apnea include sex, obesity, smoking. Needs outpatient full sleep study. Qualifiers: Sleep apnea type: unspecified type Qualified Code(s): G47.30 - Sleep apnea , unspecified (5) Nicotine dependence Current Visit: Yes Status: Acute Assessment and plan: Patient has a [id number]-[id number] history. Smoking cessation education. Qualifiers: Nicotine product type: cigarettes Substance use status: other nicotine- induced disorder Qualified Code(s): F17.218 - Nicotine dependence, cigarettes , with other nicotine-induced disorders - Subjective Interval history: Mr. Oneil is currently admitted for acute NSTEMI. He had cath today. He is high risk due to potential for worsening cardiac status. Mr. Oneil feels OK. He had cath today and stent in circ. No CP or SOB now. No fever or chills. Getting echo. - Constitutional Vitals: Temp Pulse Resp BP Pulse Ox 97.6 F 66 16 125/87 98 02/25/17 11:20 02/25/17 11:54 02/25/17 11:54 02/25/17 11:54 02/25/17 11:54 General appearance: Present: A&O X 3, pleasant, answers questions appropriately - Head Head exam: Present: normocephalic - Eye Eye exam: Present: conjuntiva pink - ENT ENT exam: Present: mucous membranes moist - Respiratory Respiratory exam: Present: CTAB. Absent: rales, rhonchi, wheezes - Cardiovascular Cardiovascular exam: Present: RRR. Absent: tachycardia - GI/Abdominal GI/Abdominal exam: Present: normal bowel sounds, soft. Absent: tenderness - Extremities Exam Extremities exam: Present: warm. Absent: pedal edema, tenderness - Neurological Exam Neurological exam: Present: alert, oriented X3, no focal deficits - Psychiatric Psychiatric exam: Present: normal affect, normal mood - Skin Skin exam: Present: dry, warm. Absent: rash Internal Medicine: Result - Labs CBC & Chem 7: 02/24/17 00:01 02/24/17 00:01 - ABG Interpretation ABG results: PT/INR, D-dimer PT 11.8 Seconds (9.4-12.1) 02/24/17 00:01 Consult Discharge Plan - Plan Referrals: NO,PCP [Primary Care Provider] -
[2017-02-26 05:25] LABS: Hematocrit 41.7 % (37.5-50.1); Hemoglobin 13.8 g/dL (12.9-16.9); Mean Corpuscular HGB Conc 33.1 g/dL (31.6-35.5); Mean Corpuscular Hemoglobin 31.2 pg (28.0-33.3); Mean Corpuscular Volume 94.3 fL (83.0-100.0); Mean Platelet Volume 14.3 fL (9.4-12.4); Platelet Count 164 K/mcL (140-400); Red Blood Count 4.42 M/mcL (4.19-5.50); Red Cell Distribution Width 14.3 % (11.5-14.5)
[2017-02-26 05:39] LABS: BUN/Creatinine Ratio 16 (6-26); Blood Urea Nitrogen 17 mg/dL (8-26); Calcium 8.8 mg/dL (8.6-10.8); Carbon Dioxide 23 mEq/L (19-29); Chloride 108 mEq/L (98-109); Glucose 90 mg/dL (70-99); Osmolality,Calculated 291 (280-300); Sodium 140 mEq/L (136-145); eGFR For African Americans > 60 (> 60); eGFR For Non-African Americans > 60 (> 60)
--- NOTE | 2017-02-26 08:59 | Discharge Summary ---
Date of Encounter: 02/26/17 Time of Encounter: 08:56 - Discharge Diagnosis (1) Non-STEMI (non-ST elevated myocardial infarction) Priority: Primary Status: Acute (2) Hyperlipidemia Priority: Secondary Status: Acute Qualifiers: Hyperlipidemia type: pure hypercholesterolemia Qualified Code(s): E78.00 - Pure hypercholesterolemia, unspecified; E78.0 - Pure hypercholesterolemia (3) Sleep apnea Priority: Secondary Status: Suspected Qualifiers: Sleep apnea type: unspecified type Qualified Code(s): G47.30 - Sleep apnea , unspecified (4) Nicotine dependence Priority: Secondary Status: Acute Qualifiers: Nicotine product type: cigarettes Substance use status: other nicotine- induced disorder Qualified Code(s): F17.218 - Nicotine dependence, cigarettes , with other nicotine-induced disorders - Discharge Medications Prescriptions: Nitroglycerin 0.4 mg SL Q5MIN PRN #60 tab.subl PRN Reason: Chest Pain Aspirin 81 mg PO DAILY #30 tab.chew Atorvastatin [Lipitor] 40 mg PO HS #30 tablet Metoprolol [Lopressor] 25 mg PO BID #60 tablet Home Medications: Aspirin 81 mg PO DAILY #30 tab.chew 02/26/17 [Rx] Atorvastatin [Lipitor] 40 mg PO HS #30 tablet 02/26/17 [Rx] Metoprolol [Lopressor] 25 mg PO BID #60 tablet 02/26/17 [Rx] Nitroglycerin 0.4 mg SL Q5MIN PRN #60 tab.subl 02/26/17 [Rx] Allergies/Adverse Reactions: Allergies No Known Allergies Allergy (Verified 02/23/17 23:51) Procedures/tests Complete & Pending: Procedures Performed prior 72 hours Category Date Time Status CL Cardiac Catheterization [CL] Routine [facility] 02/24/17 11:10 Completed ECG 12 lead ECG [ECG] Routine Y 02/25/17 07:25 Ordered EV echocardiogram Routine Y 02/25/17 07:14 Completed Date of admission: 02/24/17 04:03 Primary care physician: PCP NO Consults: 02/24/17 04:07 Consult to Cardiology [CONS] Routine Comment: Consulting Provider: Cardiology [facility] Reason for Consult: NSTEMI Call Completed: No 02/24/17 07:13 Consult to Cardiac Rehabilitation-Phase1 [CONS] Routine Comment: Reason for Consult: NSTEMI Call Completed: No Discharging clinician: Dio Mccarty - Patient Status Disposition: Home, Self-Care Condition: Fair Functional capacity at discharge: independent ambulation Overall status at discharge: patient is progressing back to baseline - Discharge Instructions Follow Up With: NO,PCP [Primary Care Provider] - Kel Gagnon, [Resident] - - Diet and Activity Activity: increase activity as tolerated Diet: low fat, low cholesterol, low salt diet Interval History: Mr. Oneil is a 57 year old male with no significant past medical history, every day smoker ( > 40 pack years history) presents with intermittent chest pain for 3 days. On 02/21/17, he noticed severe non-radiation midsternal chest pain (felt like someone was hitting with all they have), while he was walking. He rested and the pain went away in about 30 minutes. He denies palpitations, sweating, nausea, vomiting, shortness of breath at that time. The same night, he had chest pain after waking up from sleep. Tonight he had similar chest pain , after he had a nap. He was concerned and presented to the emergency department. He denies shortness of breath, cough, nausea, vomiting, abdominal pain, dysuria, hematuria or bowel problems. He was evaluated in the emergency department and his troponin was elevated at 0.23. He was given aspirin 325 mg and started on heparin infusion. He is admitted to the hospitalist service for further management. Hospital course: Patient was hospitalized. Noted that his troponin was elevated. Cardiology was consulted. Patient underwent cardiac catheterization in view of underlying non-ST elevation myocardial infarction. Stent was placed in circumflex. This was a bare metal stent. Patient was started on aspirin/beta blockers/statins/nitroglycerin. Today is day 2 of cardiac catheterization. Patient is keen to go home. Cardiology is going to sign off. His A1c is 5.3 Plan: Patient can go home. Prescription printed and handed over to patient. Appropriate medication counseling done at length. Aspirin 81 mg every day. Metoprolol 25 mg twice a day. Lipitor 40 mg nighttime. Nitroglycerin as required for the chest pain. Prescription for Brillinta has been sent to [place] [facility] by cardiology. Patient needs outpatient workup on his sleep apnea. Patient needs outpatient sleep study. Patient needs to follow up with his primary care doctor in 1-2 weeks. Patient is to follow up with cardiology as outpatient in 1-2 weeks. - Time Spent with Patient Total time spent providing and/or coordinating discharge services: - Constitutional Vitals: Temp Pulse Resp BP Pulse Ox 97.6 F 56 18 126/78 97 02/26/17 04:00 02/26/17 04:00 02/26/17 04:00 02/26/17 04:00 02/26/17 04:00 General appearance: Present: A&O X 3, pleasant, answers questions appropriately - Head Head exam: Present: atraumatic, normocephalic - Eye Eye exam: Present: PERRL, conjuntiva pink, sclera anicteric Pupils: Present: PERRL - Neck Neck exam general surgery: Present: supple, trachea midline. Absent: lymphadenopathy - Respiratory Respiratory exam: Present: CTAB. Absent: accessory muscle use, rales, rhonchi, wheezes - Cardiovascular Cardiovascular exam: Present: RRR, +S1, +S2. Absent: diastolic murmur, gallop, rubs, systolic murmur - GI/Abdominal GI/Abdominal exam: Present: normal bowel sounds, soft, no peritoneal signs. Absent: distended, tenderness - Extremities Exam Extremities exam: Present: warm, radial pulses palpable and symetrical. Absent : calf tenderness, cyanotic, pedal edema - Neurological Exam Neurological exam: Present: CN II-XII intact, oriented X3, no focal deficits. Absent: pronater drift, facial droop, speech deficit - Skin Skin exam: Present: dry, intact
[2017-02-26 09:01] VITALS: BP 126/73
[2017-02-26] MEDS: *HR* Ticagrelor 90 MG TABLET PO SCH (09:38)
[2017-02-26] MEDS: Aspirin 81 MG TAB.CHEW PO SCH (09:38)
--- NOTE | 2017-02-26 10:23 | ECHO - Doppler Report ---
Echocardiogram Name: Jose Oneil Date of Study: 02/25/2017 Date: 1960 Ht: 68.0 in Medical Record#: [id number] Age: 57 Wt: 241.0 lb Gender: Male BSA: 2.21 Order #: [id number] Location: [facility] Room #: [id number] Reading Physician: Cici Bender DO Design Assembler: Alisa Momin Ordering Physician: Magdaleno Leyva CNP Primary Physician: None Indications: NSTEMI Impressions: LVEF 60%. Normal left ventricular size and systolic function. Normal diastolic function of the left ventricle. Normal right ventricular size and function. No significant valvular dysfunction. Borderline pulmonary hypertension. Left Ventricular Wall Motion: Rest Echo Findings All wall segments showed normal motion. Findings: Study Quality * Technically adequate exam. ECG Findings * Normal sinus rhythm. Left Ventricle * LVEF 60%. * Normal LV chamber size, wall thickness and function. * Normal left ventricular diastolic function. Aorta * Normally sized aortic root. Left Atrium * Normal left atrial size. Aortic Valve * No aortic regurgitation. * Aortic valve not well visualized. * No aortic stenosis. Mitral Valve * Normal mitral valve structure. * No mitral stenosis. * Trace mitral regurgitation. Tricuspid Valve * Tricuspid valve not well visualized. * Trace tricuspid regurgitation. * Estimated RA pressure is 3 mmHg. * Estimated RVSP is 35 mmHg. * Borderline pulmonary hypertension. Pulmonic Valve * Pulmonic valve is not well visualized. * No pulmonic stenosis. * No pulmonic regurgitation. Pulmonary Artery * Pulmonary artery not well visualized. Right Ventricle * Normal right ventricular structure and function. Right Atrium * Normal right atrial size. Interatrial Septum * No evidence of PFO by color Doppler. Pericardium * The pericardium appears normal. History Hypercholesteremia History of Smoking Years 41 Packs 2 History of CAD/PTCA Myocardial Infarction Measurements: BP: 125/ 87 2D Normal Values RVIDd: 2.40 cm <2.7 cm IVSd: .90 cm 0.6 - 1.0 cm LVIDd: 4.50 cm 3.7 - 5.6 cm LVPWd: 1.10 cm 0.6 - 1.1 cm LVIDs: 3.15 cm 1.5 - 3.6 cm AO: 3.30 cm < 4.0 cm LA: 4.10 cm 2.0 - 4.0cm %FS: 28.90 cm >25 % LA volume: 65 Mitral Valve Peak E:.92 m/sec Peak A:.75 m/sec E/A Ratio:1.2 Peak E' Lat Pepito:12.6 cm/s Peak E' Med Pepito:8.58 cm/s E/E' Lat Ratio:7.3 E/E' Med Ratio:10.8 Tricuspid Valve TV Regurg Peak Grad: 32.00mmHg TV Regurg Peak Pepito: 2.81m/sec Updated by Cici Bender on 02/26/2017 10:18:19 AM electronically signed on 02/26/2017 10:19:21 AM with status of Final Wall Motion Calle: 1=Normal, 2=Hypokinesis, 3=Akinesis, 4=Dyskinesis, 5=Aneurysmal, 6=Hyperkinetic, X=Not Visualized (Blank)=Missing
== END 2017-02-26 12:00 | disposition home or self-care (01) | DRG 174 ==
LOC: EMEROO 23:37 → 2NENU 23:37 → SUATTDRO 02-24 04:03
PROVIDERS: ADMIT Internal Medicine; ATTEND Internal Medicine